=== PATIENT | male | born 1940 | race Caucasian/White ===

== ENCOUNTER → 2016-10-25 | Outpatient (CLI) | payer OTHER, MEDICARE ==
--- NOTE | 2016-10-25 13:44 | DIAGNOSTIC IMAGING REPORT ---
MRI THE RIGHT SHOULDER NO CONTRAST CLINICAL HISTORY: Right shoulder pain COMPARISON STUDY: None FINDINGS: Imaging was performed the sagittal, coronal, and axial planes. There are no areas of marrow replacement to indicate occult fracture or bone bruise. Degenerative changes are present within the AC joint. In addition to supraspinatus and infraspinatus tendinopathy, there is a full-thickness supraspinous tear. The bicipital tendon appears irregular and small and is likely partially torn There is a deformity the humeral head possibly related to an old Hill-Sachs injury IMPRESSION: Full-thickness rotator cuff tear. Electronically signed by: Bashir Gardner M.D. 10/25/2016 1:43 PM Dictated Date/Time: 10/25/2016 1:39 PM
--- NOTE | 2016-10-25 14:06 | DIAGNOSTIC IMAGING REPORT ---
MRI right chest RIGHT CHEST WITHOUT CONTRAST CLINICAL HISTORY: PEC TEAR Right muscular tear TECHNIQUE: Multi axial MRI acquisition. Limited study due to patient motion. COMPARISON STUDY: None FINDINGS: Limited study technically due to severe patient motion. Motion, disc, thin scans were utilized. Due to patient body habitus there is asymmetry in signal characteristics of the right as compared left hemithorax. Bulk of the pectoralis musculature including pectoralis major and pectoralis minor appear to be intact. There may be a mild degree of muscular edematous change. There is also mild edematous change of the intercostal musculature over the right pulmonary apex and right anterior chest wall. A major tear is not felt to be present. IMPRESSION: 1. Technically limited exam due to patient body habitus as well as inability to remain motionless. 2. Artifact created by the patient's body habitus creates artificial signal characteristics of the right hemithorax as compared to the left. 3. Nevertheless, the possibility of mild soft tissue and intercostal intercostal musculature edematous climate change analyst the pulmonary apex and right anterior chest wall is felt to be present. 4. A major or significant tear of the pectoralis musculature is not felt to be present within limitations of this exam. A partial tear of the intercostal musculature may be present Electronically signed by: Elias Reynoso M.D. 10/25/2016 2:05 PM Dictated Date/Time: 10/25/2016 2:03 PM
== END | disposition home or self-care (01) ==
LOC: C.MRIBC 11:21
PROVIDERS: ATTEND Orthopaedic Surgery
DX: M75.101 Unspecified rotator cuff tear or rupture of right shoulder, not specified as traumatic (principal)